=== PATIENT | female | born 1985 | race Caucasian/White ===

== ENCOUNTER 2021-04-25 21:12 | Emergency (ER) | payer MEDICAID ==
[~2021-04-25] VITALS: Ht 160 cm; Wt 110.2 kg
[2021-04-25 21:22] VITALS: BP 151/80
--- NOTE | 2021-04-25 21:25 | NUR ---
PT TO WAIT IN LOBBY.
[2021-04-25] MEDS ORDERED: KETOROLAC 30 MG/ML VIAL IM ONE (22:35)
--- NOTE | 2021-04-25 22:50 | NUR ---
PT TAKEN TO RADIOLOGY
--- NOTE | 2021-04-25 22:54 | NUR ---
PT TAKEN TO BED TO VIA W/C
[2021-04-25 23:10] LABS: BASOPHILS # (AUTO) 0.1 K/uL (0.00-0.22); EOSINOPHILS # (AUTO) 0.2 K/uL (0-0.4); EOSINOPHILS % (AUTO) 1.5 % (0.0-4.0); HEMOGLOBIN 9.8 g/dL (12.0-16.0); LYMPHOCYTES # (AUTO) 1.9 K/uL (2.5-16.5); LYMPHOCYTES % (AUTO) 18.6 % (20.5-51.1); MEAN CORPUSCULAR HEMOGLOBIN 21 pg (27-31); MEAN CORPUSCULAR HGB CONC 32 g/dL (33-37); MEAN CORPUSCULAR VOLUME 65.5 fL (80-94); MONOCYTES # (AUTO) 0.5 K/uL (0.8-1.0); NEUTROPHILS # (AUTO) 7.5 K/uL (1.8-7.7); NEUTROPHILS % (AUTO) 73.9 % (42.2-75.2); PLATELET COUNT (AUTO) 355 K/uL (140-450); RED BLOOD CELL COUNT(AUTO) 4.73 MIL/uL (4.20-5.40); RED CELL DISTRIBUTION WIDTH 29.6 % (11.6-13.7); WHITE BLOOD COUNT (AUTO) 10.2 K/uL (4.8-10.8)
--- NOTE | 2021-04-25 23:23 | NUR ---
patient to ultrasound
[2021-04-25 23:46] LABS: APPEARANCE,URINE HAZY (CLEAR); BILIRUBIN,URINE NEGATIVE (NEGATIVE); BLOOD, URINE 3+ (NEGATIVE); COLOR,URINE RED (YELLOW); LEUKOCYTE ESTERASE ,URINE NEGATIVE (NEGATIVE); NITRITE, URINE NEGATIVE (NEGATIVE); UGLUCOSE NEGATIVE (NEGATIVE)
[2021-04-26] LABS: ALBUMIN 3.5 g/dL (3.4-5.0); ANION GAP 9.8 (8-16); CARBON DIOXIDE 24.8 mmol/L (21-32); CREATININE 0.7 mg/dL (0.6-1.3); POTASSIUM 4.6 mmol/L (3.5-5.1); TOTAL BILIRUBIN 0.2 mg/dL (0.0-1.0)
[2021-04-26 00:27] LABS: RBC,URINE TOO NUMEROUS TO COUN /HPF (0-5); WBC,URINE 0-5 /HPF (0-5)
--- NOTE | 2021-04-26 00:56 | NUR ---
spoke with patient's seven for updates.
--- NOTE | 2021-04-26 01:34 | NUR ---
called Ultrasound to have report expedited
--- NOTE | 2021-04-26 01:53 | NUR ---
YUVAL Ruiz at bedside for results and re-examination of patient.
[2021-04-26 02:33] VITALS: BP 116/66
--- NOTE | 2021-04-26 02:33 | NUR ---
Patient discharged with v/s stable. Written and verbal after care instructions given and explained. Patient verbalized understanding. Ambulatory with steady gait. ID band removed. All questions addressed prior to discharge. Advised to follow up with PMD.
== END 2021-04-26 02:33 | disposition home or self-care (01) ==
LOC: MED 21:12
DX: R10.2 Pelvic and perineal pain (principal); D64.9 Anemia, unspecified; N92.1 Excessive and frequent menstruation with irregular cycle; R00.0 Tachycardia, unspecified; N94.89 Other specified conditions associated with female genital organs and menstrual cycle; E66.9 Obesity, unspecified; Z68.41 Body mass index [BMI] 40.0-44.9, adult; Z88.1 Allergy status to other antibiotic agents; Z79.899 Other long term (current) drug therapy
CPT/HCPCS: 36415; 71045; 76830; 80053; 81001; 81025; 84703; 85025; 86886; 86900; 86901; 96372; 99285; J1885; Q0092; 93005